=== PATIENT | male | born 1940 | race African-American/Black ===

== ENCOUNTER 2022-07-19 22:25 | Inpatient (IN) | payer MEDICARE, MEDICAID ==
[~2022-07-19] VITALS: Ht 185.4 cm; Wt 72.3 kg
[2022-07-19] MEDS ORDERED: SODIUM CHLORIDE 0.9% 1,000 ML IV ONE (23:15)
[2022-07-20 00:16] LABS: HEMATOCRIT. 31.3 % (42.0-52.0); HEMOGLOBIN. 9.8 g/dL (14.0-18.0); MEAN CORPUSCULAR HEMOGLOBIN 20.3 pg (28.0-32.0); MEAN CORPUSCULAR VOLUME 64.6 fL (80.0-94.0); MEAN PLATELET VOLUME 8.6 fl (7.4-10.4); PLATELET 269 x1000/uL (130-400); RED BLOOD CELL COUNT 4.83 mill/uL (4.7-6.1); RED CELL DISTRIBUTION WIDTH 20.5 % (11.6-14.6)
[2022-07-20 00:32] LABS: CHLORIDE 105 mEq/L (98-107)
[2022-07-20 00:49] LABS: ETHANOL BLOOD < 10 mg/dL
[2022-07-20 02:50] LABS: *AMPHETAMINES SCREEN URINE NEGATIVE (NEGATIVE); *BARBITURATES SCREEN URINE NEGATIVE (NEGATIVE); *BENZODIAZEPINES SCREEN URINE NEGATIVE (NEGATIVE); *COCAINE SCREEN URINE NEGATIVE (NEGATIVE); CANNABINOID URINE SCREEN NEGATIVE (NEGATIVE); METHADONE URINE SCREEN NEGATIVE (NEGATIVE); OPIATES URINE SCREEN NEGATIVE (NEGATIVE); PHENCYCLIDINE URINE SCREEN NEGATIVE (NEGATIVE)
[2022-07-20] MEDS ORDERED: IOHEXOL-350 100 ML BOTTLE ONE (02:59)
[2022-07-20 05:44] LABS: PLATELET ESTIMATE NORMAL
[2022-07-20 08:30] VITALS: BP 147/77
[2022-07-20 10:00] VITALS: BP 147/77
[2022-07-20] MEDS ORDERED: APIX5TAB PO (11:23)
[2022-07-20] MEDS ORDERED: NORT10CA PO (11:25)
[2022-07-20] MEDS ORDERED: CYAN250010 MT (11:29)
[2022-07-20] MEDS ORDERED: MAGN250T29 MT (11:29)
[2022-07-20] MEDS ORDERED: OMEP10CA5 PO (11:29)
[2022-07-20] MEDS ORDERED: MULT-1146 MT (11:29)
[2022-07-20] MEDS ORDERED: ASCO100T12 MT (11:29)
[2022-07-20] MEDS ORDERED: ACETAMINOPHEN 325MG TABLET PO PRN (11:45)
[2022-07-20] MEDS ORDERED: IPRATROPIUM/ALBUTEROL 0.5-3(2.5)MG/3ML NEB HHN PRN (11:45)
[2022-07-20] MEDS ORDERED: ONDANSETRON HCL 4MG/2ML INJ IV PRN (11:45)
[2022-07-20 12:00] VITALS: BP 128/75
[2022-07-20] MEDS ORDERED: PERMETHRIN 5% CREAM 60GM TOP SCH (13:00)
[2022-07-20 14:57] LABS: CLARITY URINE CLEAR (CLEAR); COLOR URINE YELLOW (YELLOW); KETONES URINE 1+ (NEGATIVE); LEUKOCYTE ESTERASE URINE NEGATIVE (NEGATIVE); NITRITE URINE NEGATIVE (NEGATIVE); OCCULT BLOOD URINE NEGATIVE (NEGATIVE); PH URINE 6.5 (4.5-8.0); PROTEIN URINE TRACE (NEGATIVE); SPECIFIC GRAVITY URINE 1.037 (1.005-1.030)
[2022-07-20 16:00] VITALS: BP 146/74
[2022-07-20 17:38] LABS: BASOPHILS % 0.4 % (0.0-2.0); EOSINOPHILS % 0.1 % (0.0-5.0); HEMATOCRIT. 30.5 % (42.0-52.0); HEMOGLOBIN. 9.5 g/dL (14.0-18.0); LYMPHOCYTES % 7.5 % (20.0-50.0); MEAN CORPUSCULAR HEMOGLOBIN 20.1 pg (28.0-32.0); MEAN CORPUSCULAR VOLUME 64.6 fL (80.0-94.0); MEAN PLATELET VOLUME 8.8 fl (7.4-10.4); MONOCYTES % 3.7 % (2.0-8.0); NEUTROPHILS % 88.3 % (40.0-76.0); PLATELET 274 x1000/uL (130-400); RED BLOOD CELL COUNT 4.73 mill/uL (4.7-6.1); RED CELL DISTRIBUTION WIDTH 20.3 % (11.6-14.6)
[2022-07-20 18:01] LABS: CHLORIDE 103 mEq/L (98-107)
[2022-07-20 18:15] LABS: CREATINE KINASE 139 IU/L (39-308); CREATINE KINASE MB FRACTION 1.9 ng/mL (0.5-3.6)
[2022-07-20] MEDS: APIXABAN 5 MG TABLET PO SCH (18:28)
[2022-07-20 20:00] VITALS: BP 131/61
[2022-07-20 20:14] LABS: PLATELET ESTIMATE NORMAL
[2022-07-20 23:41] LABS: CREATINE KINASE MB FRACTION 1.5 ng/mL (0.5-3.6)
[2022-07-21] VITALS (8 sets, daily range): BP systolic 101–118; BP diastolic 56–65
[2022-07-21 08:02] LABS: BASOPHILS % 0.2 % (0.0-2.0); EOSINOPHILS % 0.4 % (0.0-5.0); HEMATOCRIT. 27.1 % (42.0-52.0); HEMOGLOBIN. 8.6 g/dL (14.0-18.0); LYMPHOCYTES % 13.5 % (20.0-50.0); MEAN CORPUSCULAR HEMOGLOBIN 20.2 pg (28.0-32.0); MEAN CORPUSCULAR VOLUME 63.5 fL (80.0-94.0); MEAN PLATELET VOLUME 8.6 fl (7.4-10.4); MONOCYTES % 6.6 % (2.0-8.0); NEUTROPHILS % 79.3 % (40.0-76.0); PLATELET 226 x1000/uL (130-400); RED BLOOD CELL COUNT 4.27 mill/uL (4.7-6.1); RED CELL DISTRIBUTION WIDTH 20.4 % (11.6-14.6)
[2022-07-21 08:10] LABS: CHLORIDE 106 mEq/L (98-107)
[2022-07-21 08:18] LABS: HDL CHOLESTEROL 85 mg/dL (40-59); LDL CHOLESTEROL 45 mg/dL (5-100)
[2022-07-21] MEDS: APIXABAN 5 MG TABLET PO SCH ×2 (08:41→16:55)
[2022-07-21] MEDS ORDERED: MAGNESIUM 2 G PREMIX 50 ML IV NR (11:00)
[2022-07-21] MEDS: LEVOFLOXACIN 500MG PREMIX 100 ML IV SCH (16:55)
[2022-07-22] VITALS (7 sets, daily range): BP systolic 95–137; BP diastolic 44–89
[2022-07-22 07:39] LABS: HEMATOCRIT. 26.3 % (42.0-52.0); HEMOGLOBIN. 8.5 g/dL (14.0-18.0); MEAN CORPUSCULAR HEMOGLOBIN 20.7 pg (28.0-32.0); MEAN CORPUSCULAR VOLUME 64.3 fL (80.0-94.0); MEAN PLATELET VOLUME 8.5 fl (7.4-10.4); PLATELET 237 x1000/uL (130-400); RED CELL DISTRIBUTION WIDTH 20.5 % (11.6-14.6)
[2022-07-22] MEDS: APIXABAN 2.5 MG TABLET PO SCH ×2 (08:26→16:05)
[2022-07-22 08:44] LABS: PLATELET ESTIMATE NORMAL
[2022-07-22 10:27] LABS: CHLORIDE 105 mEq/L (98-107)
[2022-07-22] MEDS: LEVOFLOXACIN 500MG PREMIX 100 ML IV SCH (13:23)
[2022-07-22] MEDS ORDERED: VANCOMYCIN 1GM PMX (XELLIA) 200 ML IV NR (14:00)
[2022-07-23] MEDS ORDERED: VANCOMYCIN 750MG PMX (XELLIA) 150 ML IV SCH (02:00)
[2022-07-23 04:01] VITALS: BP 112/62
[2022-07-23 08:00] VITALS: BP 136/74
[2022-07-23] MEDS: APIXABAN 2.5 MG TABLET PO SCH (08:52)
[2022-07-23 11:32] VITALS: BP 138/72
[2022-07-23] MEDS: ASPIRIN 81MG TABLET PO SCH (12:36)
[2022-07-23 16:00] VITALS: BP 97/54
[2022-07-23 17:06] LABS: CHLORIDE 105 mEq/L (98-107)
[2022-07-23 20:00] VITALS: BP 107/70
[2022-07-23 21:06] LABS: BASOPHILS % 1.2 % (0.0-2.0); EOSINOPHILS % 6.2 % (0.0-5.0); HEMATOCRIT. 28.9 % (42.0-52.0); HEMOGLOBIN. 9.4 g/dL (14.0-18.0); LYMPHOCYTES % 36.9 % (20.0-50.0); MEAN CORPUSCULAR VOLUME 64.2 fL (80.0-94.0); MEAN PLATELET VOLUME 8.6 fl (7.4-10.4); MONOCYTES % 8.7 % (2.0-8.0); PLATELET 325 x1000/uL (130-400); RED CELL DISTRIBUTION WIDTH 20.3 % (11.6-14.6)
[2022-07-24] VITALS: BP_SYST 120; BP_SYST 127; BP_SYST 132; BP_DIAS 68; BP_DIAS 69; BP_DIAS 75
[2022-07-24 04:00] VITALS: BP 122/70
[2022-07-24 06:01] LABS: BASOPHILS % 1.1 % (0.0-2.0); EOSINOPHILS % 6.8 % (0.0-5.0); HEMATOCRIT. 27.2 % (42.0-52.0); HEMOGLOBIN. 8.9 g/dL (14.0-18.0); LYMPHOCYTES % 37.3 % (20.0-50.0); MEAN CORPUSCULAR HEMOGLOBIN 20.5 pg (28.0-32.0); MEAN PLATELET VOLUME 8.7 fl (7.4-10.4); MONOCYTES % 11.2 % (2.0-8.0); NEUTROPHILS % 43.6 % (40.0-76.0); PLATELET 289 x1000/uL (130-400); RED BLOOD CELL COUNT 4.31 mill/uL (4.7-6.1); RED CELL DISTRIBUTION WIDTH 20.1 % (11.6-14.6)
[2022-07-24 06:38] LABS: CHLORIDE 105 mEq/L (98-107)
[2022-07-24 07:38] VITALS: BP 115/59
[2022-07-24] MEDS: MAGNESIUM OXIDE 400MG TABLET PO SCH (08:24)
[2022-07-24] MEDS: ASPIRIN 81MG TABLET PO SCH (08:24)
[2022-07-24] MEDS ORDERED: MAGNESIUM 2 G PREMIX 50 ML IV NR (09:30)
[2022-07-24 11:24] VITALS: BP 90/51
[2022-07-24 15:21] VITALS: BP 100/50
[2022-07-24 22:33] VITALS: BP 115/63
[2022-07-25 00:44] VITALS: BP 109/60
[2022-07-25 04:00] VITALS: BP 105/55
[2022-07-25 07:38] VITALS: BP 133/64
[2022-07-25] MEDS: MAGNESIUM OXIDE 400MG TABLET PO SCH (08:16)
[2022-07-25] MEDS: ASPIRIN 81MG TABLET PO SCH (08:16)
[2022-07-25 08:56] VITALS: BP 133/64
[2022-07-25 11:26] VITALS: BP 99/54
== END 2022-07-25 13:50 | DRG 74 ==
LOC: ER 22:25 → 8WST 07-20 03:10 → EDBEDREQTM 07-20 03:24 → EDBEDREQ 07-20 03:24 → ENRESERV 07-20 07:27
PROVIDERS: ADMIT Internal Medicine; ATTEND Internal Medicine
DX: G90.8 Other disorders of autonomic nervous system (principal); L97.919 Non-pressure chronic ulcer of unspecified part of right lower leg with unspecified severity; L97.929 Non-pressure chronic ulcer of unspecified part of left lower leg with unspecified severity; F05 Delirium due to known physiological condition; R65.10 Systemic inflammatory response syndrome (SIRS) of non-infectious origin without acute organ dysfunction; D72.829 Elevated white blood cell count, unspecified; I87.2 Venous insufficiency (chronic) (peripheral); I87.8 Other specified disorders of veins; Z20.822 Contact with and (suspected) exposure to COVID-19; L30.9 Dermatitis, unspecified; M20.11 Hallux valgus (acquired), right foot; M20.40 Other hammer toe(s) (acquired), unspecified foot; M20.12 Hallux valgus (acquired), left foot; I70.209 Unspecified atherosclerosis of native arteries of extremities, unspecified extremity; E83.42 Hypomagnesemia; I51.7 Cardiomegaly; I10 Essential (primary) hypertension; R79.89 Other specified abnormal findings of blood chemistry; Z86.711 Personal history of pulmonary embolism; Z79.01 Long term (current) use of anticoagulants
CPT/HCPCS: 36415; 71045; 71275; 74176; 80048; 80053; 80061; 80305; 80320; 81003; 82550; 82553; 83735; 83880; 84145; 84484; 85025; 85379; 87426; 93005; 93306; 93880; 93923; 93970; 97162; 99291; J1956; J3370; J3475; J7030; Q9967; G0480